=== PATIENT | male | born 1985 | race Caucasian/White ===

== ENCOUNTER 2018-05-03 08:47 | Outpatient (RCR) | payer OTHER | END 2018-05-05 10:40 | disposition home or self-care (01) | LOC: WSOH 08:47 | DX: S61.412A Laceration without foreign body of left hand, initial encounter (principal); W29.8XXA Contact with other powered hand tools and household machinery, initial encounter; Y92.59 Other trade areas as the place of occurrence of the external cause; Y99.0 Civilian activity done for income or pay; Z87.891 Personal history of nicotine dependence; Z23 Encounter for immunization ==

== ENCOUNTER 2019-01-23 10:47 | Outpatient (RCR) | payer OTHER | END 2019-01-31 13:24 | disposition home or self-care (01) | LOC: WSOH 10:47 | DX: S05.11XA Contusion of eyeball and orbital tissues, right eye, initial encounter (principal); S05.01XA Injury of conjunctiva and corneal abrasion without foreign body, right eye, initial encounter; Z87.891 Personal history of nicotine dependence; Y99.0 Civilian activity done for income or pay ==

== ENCOUNTER 2020-08-14 10:10 | Outpatient (RCR) | payer OTHER | END 2020-08-15 13:15 | disposition home or self-care (01) | LOC: WSOH 10:10 | DX: S46.211A Strain of muscle, fascia and tendon of other parts of biceps, right arm, initial encounter (principal); Y99.0 Civilian activity done for income or pay ==